=== PATIENT | female | born 1945 | race Caucasian/White ===

== ENCOUNTER → 2019-06-03 10:21 | Outpatient (CLI) | payer OTHER, SELFPAY ==
[2019-06-03 11:06] LABS: Hematocrit 38.7 % (36-46); Hemoglobin 13.2 g/dL (12.0-16.0); Mean Corpuscular HGB Conc 34.2 % (30-36); Mean Corpuscular Hemoglobin 33.6 PG (26-34); Mean Corpuscular Volume 98.2 fL (80-100); Platelet Count 148 X10^3/uL (150-400); Red Blood Cell Count 3.94 X10^6/uL (4.0-5.2); Red Cell Distribution Width 13.1 % (11.6-14.8)
[2019-06-03 11:15] LABS: Alanine Aminotransferase 24 IU/L (9-52); Albumin 4.3 g/dL (3.5-5.0); Albumin Globulin Ratio 1.6 (1.0-2.8); Alkaline Phosphatase 89 U/L (38-126); Aspartate Aminotransferase 48 IU/L (14-36); BUN Creatinine Ratio 18.6 (6-22); Bilirubin Total 0.6 mg/dL (0.2-1.3); Blood Urea Nitrogen 13 mg/dL (7-17); Calcium 9.8 mg/dL (8.4-10.2); Carbon Dioxide 28 mmol/L (22-32); Chloride 96 mmol/L (98-107); Estimated Glomerular Filt Rate > 60.0 mL/min (>60); Globulin 2.7 g/dL (1.7-4.1); Glucose 151 mg/dL (80-110); HEMOLYSIS < 15 (0-50); Sodium 135 mmol/L (137-145)
[2019-06-03 11:18] LABS: Add Manual Diff / Slide Review YES; White Blood Cell Count 1.9 X10^3/uL (4.5-11.0)
[2019-06-03 11:19] LABS: Potassium 5.5 mmol/L (3.4-5.1)
[2019-06-03 11:24] LABS: Neutrophils Absolute Manual 1026 /uL (3000-5900); Total Cells Counted 100
[2019-06-03 11:25] LABS: RBC Morphology Normal Morphology
== END ==
PROVIDERS: Visit Provider Internal Medicine Hematology & Oncology
DX: C78.00 Secondary malignant neoplasm of unspecified lung (principal); C79.51 Secondary malignant neoplasm of bone; C78.7 Secondary malignant neoplasm of liver and intrahepatic bile duct
CPT/HCPCS: 36415; 80053; 85025

== ENCOUNTER → 2019-06-16 11:16 | Outpatient (CLI) | payer OTHER, SELFPAY ==
[2019-06-16 12:16] LABS: Hemoglobin 12.2 g/dL (12.0-16.0); Mean Corpuscular Hemoglobin 33.6 PG (26-34); Mean Corpuscular Volume 98.8 fL (80-100); Platelet Count 163 X10^3/uL (150-400); Red Blood Cell Count 3.64 X10^6/uL (4.0-5.2); Red Cell Distribution Width 13.8 % (11.6-14.8)
[2019-06-16 12:36] LABS: Add Manual Diff / Slide Review YES; White Blood Cell Count 1.9 X10^3/uL (4.5-11.0)
[2019-06-16 12:45] LABS: Alanine Aminotransferase 35 IU/L (<35); Albumin 4.2 g/dL (3.5-5.0); Albumin Globulin Ratio 1.6 (1.0-2.8); Alkaline Phosphatase 89 U/L (38-126); Aspartate Aminotransferase 49 IU/L (14-36); Bilirubin Total 0.4 mg/dL (0.2-1.3); Blood Urea Nitrogen 21 mg/dL (7-17); Calcium 9.3 mg/dL (8.4-10.2); Carbon Dioxide 31 mmol/L (22-32); Chloride 96 mmol/L (98-107); Estimated Glomerular Filt Rate > 60.0 mL/min (>60); Globulin 2.7 g/dL (1.7-4.1); Glucose 96 mg/dL (80-110); HEMOLYSIS < 15 (0-50); Potassium 4.4 mmol/L (3.4-5.1); Sodium 136 mmol/L (137-145); Total Protein 6.9 g/dL (6.3-8.2)
[2019-06-16 13:05] LABS: Neutrophils Absolute Manual 760 /uL (3000-5900); Total Cells Counted 50
[2019-06-16 13:07] LABS: Poikilocytosis 1+
[2019-06-16 13:11] LABS: Carcinoembryonic Antigen 41.1 ng/mL (0.1-3.0)
[2019-06-18 18:21] LABS: CA 15-3 884 U/mL (< 32)
== END ==
PROVIDERS: Visit Provider Internal Medicine Hematology & Oncology
DX: C79.51 Secondary malignant neoplasm of bone (principal); C78.7 Secondary malignant neoplasm of liver and intrahepatic bile duct; C78.00 Secondary malignant neoplasm of unspecified lung
CPT/HCPCS: 36415; 80053; 82378; 85025; 86300

== ENCOUNTER 2019-06-22 03:20 | Emergency (ER) | payer OTHER, SELFPAY ==
[2019-06-22 03:34] VITALS: BP 130/77; PULSE 88; RESP 18; TEMP 36.3; O2SAT 100
[2019-06-22 03:45] VITALS: BP 130/77; PULSE 87; O2SAT 96
--- NOTE | 2019-06-22 03:45 | ED_ITS ---
HPI - Abdominal Pain General Chief Complaint: Abdominal Pain Stated Complaint: has impacted bowel Time Seen by Provider: 06/22/19 03:45 Source: patient Mode of arrival: Ambulatory Limitations: no limitations History of Present Illness HPI narrative: The patient has abdominal pressure with discomfort. She has no associated nausea vomiting. She has not had a bowel movement for 2 days. She feels like there is a firmness in her rectum. She is on chemotherapy for metastatic breast cancer. She is able to eat and drink, although her appetite is suppressed. She has no fever chills, or vomiting. She takes stool softeners, but constipation seems to be more problem now than usual. She has no associated urinary complaints. She has no other complaints. Related Data Home Medications Medication Instructions Recorded Confirmed [RX FOR BREAST CA] #0 10/25/12 [RX FOR GERD] #0 10/25/12 atenolol 25 mg PO QDAY #0 10/25/12 trazodone 50 mg PO QDAY #0 10/25/12 Previous Rx's Medication Instructions Recorded bisacodyl [Dulcolax (bisacodyl)] 5 mg PO BID PRN #20 tab 06/22/19 Review of Systems Review of Systems ROS Unobtainable: All systems reviewed & are unremarkable except as noted in HPI and below Constitutional Constitutional: Denies chills, Denies fatigue and Denies fever(s) Respiratory Respiratory: Denies chest congestion and Denies cough Gastrointestinal Gastrointestinal: Denies melena, Denies bloating, Denies hematochezia, Reports constipation and Reports cramping Genitourinary Genitourinary: Denies dysuria Musculoskeletal Musculoskeletal: Denies back pain Integumentary/Breasts Skin/Breast: Denies rash Endocrine Endocrine: Denies fatigue Patient History Social History Smoking Status: Never smoker Substance Use Type: does not use Exam Initial Vital Signs Initial Vital Signs: Vital Signs Temperature 97.3 F L 06/22/19 03:34 Pulse Rate 88 06/22/19 03:34 Respiratory Rate 18 06/22/19 03:34 Blood Pressure 130/77 06/22/19 03:34 Pulse Oximetry 100 06/22/19 03:34 Const General: cooperative and well developed Nutritional Appearance: well nourished Orientation: alert, awake, oriented x3 and not confused [facility] Head: normocephalic and atraumatic Mouth: moist mucous membranes GI Inspection: normal to inspection Palpation: soft, No guarding, No mass and tender (Mild LLQ ) Auscultation: normal bowel sounds Rectal Exam: fecal impaction (Mild) and hemorrhoids Skin General: no rashes or lesions noted, No jaundice and No petechiae Course Course Course Narrative: Digital disimpaction was done. A small-bowel moved was induced. The noon was given, resulting in additional bowel movement. She is still spilling some fullness. She will disease Orders Ordered: Discontinued Medications Bisacodyl (Dulcolax) 10 mg PO NOW ONE Stop: 06/22/19 05:13 Mineral Oil (Mineral Oil Enema) 1 each MS NOW ONE Stop: 06/22/19 04:58 Vital Signs Vital signs: Vital Signs - 8 hr 06/22/19 03:34 06/22/19 03:45 Temperature 97.3 F L Pulse Rate 88 87 Respiratory Rate 18 Blood Pressure 130/77 Blood Pressure [Right Arm] 130/77 Pulse Oximetry 100 96 Discharge Plan Departure Patient Disposition: Home Clinical Impression: Constipation Instructions: DI for Constipation Activity Restrictions/Additional Instructions: Increase the use of Colace to 2 times daily, continue to drink plenty of fluid daily. Use Dulcolax if you have problems with constipation despite the Colace. If you have ongoing problems, follow up with her doctor for further instructions. Return the ER if you have increased abdominal pain, vomiting, or fever. Prescriptions: New bisacodyl [Dulcolax (bisacodyl)] 5 mg tablet,delayed release (DR/EC) 5 mg PO BID PRN (Reason: constipation) Qty: 20 RF: 0 No Action trazodone 50 MG tablet 50 mg PO QDAY Qty: 0 RF: 0 atenolol 25 MG tablet 25 mg PO QDAY Qty: 0 RF: 0 [RX FOR GERD] Qty: 0 RF: 0 [RX FOR BREAST CA] Qty: 0 RF: 0
[2019-06-22] MEDS: MINERAL OIL 1 EACH ENEMA PR (05:19)
== END 2019-06-22 05:20 | disposition home or self-care (01) ==
PROVIDERS: Emergency Provider Emergency Medicine
DX: K59.00 Constipation, unspecified (principal)
CPT/HCPCS: 99282

== ENCOUNTER → 2019-06-24 08:13 | Outpatient (CLI) | payer OTHER, SELFPAY ==
[2019-06-24 08:55] LABS: Add Manual Diff / Slide Review NO; Basophils Absolute Auto 100 /uL (0-100); Basophils Percent Auto 1.4 % (0-2); Eosinophils Absolute Auto 100 /uL (0-450); Eosinophils Percent Auto 1.6 % (2-4); Hematocrit 37.1 % (36-46); Hemoglobin 12.6 g/dL (12.0-16.0); Lymphocytes Absolute Auto 1300 /uL (1100-4500); Lymphocytes Percent Auto 28.5 % (25-40); Mean Corpuscular Hemoglobin 33.5 PG (26-34); Mean Corpuscular Volume 98.7 fL (80-100); Monocytes Absolute Auto 600 /uL (0-900); Monocytes Percent Auto 11.9 % (3-14); Neutrophils Absolute Auto 2600 /uL (1500-7000); Neutrophils Percent Auto 56.6 % (50-75); Platelet Count 270 X10^3/uL (150-400); Red Blood Cell Count 3.76 X10^6/uL (4.0-5.2); White Blood Cell Count 4.7 X10^3/uL (4.5-11.0)
[2019-06-24 09:19] LABS: Alanine Aminotransferase 50 IU/L (<35); Albumin 3.8 g/dL (3.5-5.0); Albumin Globulin Ratio 1.5 (1.0-2.8); Alkaline Phosphatase 109 U/L (38-126); Aspartate Aminotransferase 58 IU/L (14-36); BUN Creatinine Ratio 16.7 (6-22); Bilirubin Total 0.5 mg/dL (0.2-1.3); Blood Urea Nitrogen 10 mg/dL (7-17); Calcium 9.5 mg/dL (8.4-10.2); Carbon Dioxide 31 mmol/L (22-32); Chloride 100 mmol/L (98-107); Estimated Glomerular Filt Rate > 60.0 mL/min (>60); Globulin 2.6 g/dL (1.7-4.1); Glucose 103 mg/dL (80-110); HEMOLYSIS < 15 (0-50); Potassium 4.7 mmol/L (3.4-5.1); Sodium 138 mmol/L (137-145); Total Protein 6.4 g/dL (6.3-8.2)
[2019-06-24 09:46] LABS: Carcinoembryonic Antigen 37.6 ng/mL (0.1-3.0)
== END ==
PROVIDERS: Visit Provider Internal Medicine Hematology & Oncology
DX: C78.00 Secondary malignant neoplasm of unspecified lung (principal); C79.51 Secondary malignant neoplasm of bone; C78.7 Secondary malignant neoplasm of liver and intrahepatic bile duct
CPT/HCPCS: 36415; 80053; 82378; 85025

== ENCOUNTER → 2019-07-08 11:38 | Outpatient (CLI) | payer OTHER, SELFPAY ==
[2019-07-08 12:10] LABS: Add Manual Diff / Slide Review NO; Basophils Absolute Auto 0 /uL (0-100); Basophils Percent Auto 1.5 % (0-2); Eosinophils Absolute Auto 0 /uL (0-450); Eosinophils Percent Auto 1.2 % (2-4); Hematocrit 36.4 % (36-46); Hemoglobin 12.6 g/dL (12.0-16.0); Lymphocytes Absolute Auto 800 /uL (1100-4500); Lymphocytes Percent Auto 27.9 % (25-40); Mean Corpuscular HGB Conc 34.7 % (30-36); Mean Corpuscular Hemoglobin 34.2 PG (26-34); Mean Corpuscular Volume 98.5 fL (80-100); Monocytes Absolute Auto 100 /uL (0-900); Neutrophils Absolute Auto 1800 /uL (1500-7000); Neutrophils Percent Auto 65.4 % (50-75); Platelet Count 180 X10^3/uL (150-400); Red Blood Cell Count 3.69 X10^6/uL (4.0-5.2); Red Cell Distribution Width 15.2 % (11.6-14.8); White Blood Cell Count 2.7 X10^3/uL (4.5-11.0)
== END ==
PROVIDERS: Visit Provider Internal Medicine Hematology & Oncology
DX: C78.00 Secondary malignant neoplasm of unspecified lung (principal); C79.51 Secondary malignant neoplasm of bone; C78.7 Secondary malignant neoplasm of liver and intrahepatic bile duct
CPT/HCPCS: 36415; 85025

== ENCOUNTER → 2019-09-15 09:33 | Outpatient (CLI) | payer OTHER, SELFPAY ==
[2019-09-15 10:16] LABS: Add Manual Diff / Slide Review NO; Basophils Absolute Auto 0 /uL (0-100); Basophils Percent Auto 1.1 % (0-2); Eosinophils Absolute Auto 0 /uL (0-450); Eosinophils Percent Auto 1.8 % (2-4); Hematocrit 38.5 % (36-46); Hemoglobin 13.5 g/dL (12.0-16.0); Lymphocytes Absolute Auto 800 /uL (1100-4500); Lymphocytes Percent Auto 28.3 % (25-40); Mean Corpuscular Volume 102.9 fL (80-100); Monocytes Absolute Auto 300 /uL (0-900); Monocytes Percent Auto 10.4 % (3-14); Neutrophils Absolute Auto 1600 /uL (1500-7000); Neutrophils Percent Auto 58.4 % (50-75); Platelet Count 113 X10^3/uL (150-400); Red Blood Cell Count 3.74 X10^6/uL (4.0-5.2); Red Cell Distribution Width 15.5 % (11.6-14.8); White Blood Cell Count 2.8 X10^3/uL (4.5-11.0)
[2019-09-15 10:43] LABS: Alanine Aminotransferase 34 IU/L (<35); Albumin Globulin Ratio 1.4 (1.0-2.8); Alkaline Phosphatase 102 U/L (38-126); Aspartate Aminotransferase 47 IU/L (14-36); BUN Creatinine Ratio 27.1 (6-22); Bilirubin Total 0.5 mg/dL (0.2-1.3); Blood Urea Nitrogen 19 mg/dL (7-17); Calcium 9.6 mg/dL (8.4-10.2); Carbon Dioxide 30 mmol/L (22-32); Chloride 99 mmol/L (98-107); Estimated Glomerular Filt Rate > 60.0 mL/min (>60); Globulin 2.9 g/dL (1.7-4.1); Glucose 138 mg/dL (80-110); HEMOLYSIS < 15 (0-50); Sodium 138 mmol/L (137-145); Total Protein 6.9 g/dL (6.3-8.2)
[2019-09-15 11:13] LABS: Carcinoembryonic Antigen 26.8 ng/mL (0.1-3.0)
[2019-09-17 16:13] LABS: CA 15-3 884 U/mL (< 32)
== END ==
PROVIDERS: Referring Provider Internal Medicine Hematology & Oncology; Visit Provider Internal Medicine Hematology & Oncology
DX: C78.00 Secondary malignant neoplasm of unspecified lung (principal); C79.51 Secondary malignant neoplasm of bone; C78.7 Secondary malignant neoplasm of liver and intrahepatic bile duct
CPT/HCPCS: 36415; 80053; 82378; 85025; 86300

== ENCOUNTER → 2019-10-24 10:46 | Outpatient (CLI) | payer OTHER, SELFPAY ==
[2019-10-24 12:42] LABS: Add Manual Diff / Slide Review NO; Basophils Absolute Auto 100 /uL (0-100); Basophils Percent Auto 2.8 % (0-2); Eosinophils Absolute Auto 100 /uL (0-450); Eosinophils Percent Auto 2.1 % (2-4); Hematocrit 40.5 % (36-46); Lymphocytes Absolute Auto 900 /uL (1100-4500); Lymphocytes Percent Auto 29.2 % (25-40); Mean Corpuscular HGB Conc 34.5 % (30-36); Mean Corpuscular Hemoglobin 36.1 PG (26-34); Mean Corpuscular Volume 104.5 fL (80-100); Monocytes Absolute Auto 300 /uL (0-900); Monocytes Percent Auto 9.7 % (3-14); Neutrophils Absolute Auto 1700 /uL (1500-7000); Neutrophils Percent Auto 56.2 % (50-75); Platelet Count 173 X10^3/uL (150-400); Red Blood Cell Count 3.88 X10^6/uL (4.0-5.2); Red Cell Distribution Width 13.8 % (11.6-14.8)
== END ==
PROVIDERS: Referring Provider Internal Medicine Hematology & Oncology; Visit Provider Internal Medicine Hematology & Oncology
DX: C78.00 Secondary malignant neoplasm of unspecified lung (principal); C79.51 Secondary malignant neoplasm of bone; C78.7 Secondary malignant neoplasm of liver and intrahepatic bile duct
CPT/HCPCS: 36415; 85025

== ENCOUNTER → 2019-12-26 12:27 | Outpatient (CLI) | payer OTHER, SELFPAY ==
[2019-12-26 13:29] LABS: Add Manual Diff / Slide Review NO; Basophils Absolute Auto 0 /uL (0-100); Basophils Percent Auto 0.6 % (0-2); Eosinophils Absolute Auto 0 /uL (0-450); Hematocrit 37.7 % (36-46); Lymphocytes Absolute Auto 700 /uL (1100-4500); Lymphocytes Percent Auto 36.2 % (25-40); Mean Corpuscular HGB Conc 34.6 % (30-36); Mean Corpuscular Hemoglobin 35.8 PG (26-34); Mean Corpuscular Volume 103.4 fL (80-100); Monocytes Absolute Auto 200 /uL (0-900); Monocytes Percent Auto 8.8 % (3-14); Neutrophils Absolute Auto 1100 /uL (1500-7000); Neutrophils Percent Auto 53.4 % (50-75); Platelet Count 101 X10^3/uL (150-400); Red Blood Cell Count 3.64 X10^6/uL (4.0-5.2); Red Cell Distribution Width 13.3 % (11.6-14.8)
[2019-12-26 14:35] LABS: Alanine Aminotransferase 28 IU/L (<35); Albumin 3.8 g/dL (3.5-5.0); Albumin Globulin Ratio 1.3 (1.0-2.8); Alkaline Phosphatase 106 U/L (38-126); Aspartate Aminotransferase 44 IU/L (14-36); BUN Creatinine Ratio 22.2 (6-22); Bilirubin Total 0.3 mg/dL (0.2-1.3); Blood Urea Nitrogen 16 mg/dL (7-17); Calcium 9.3 mg/dL (8.4-10.2); Carbon Dioxide 28 mmol/L (22-32); Chloride 101 mmol/L (98-107); Estimated Glomerular Filt Rate > 60.0 mL/min (>60); Glucose 164 mg/dL (80-110); HEMOLYSIS < 15 (0-50); Potassium 4.7 mmol/L (3.4-5.1); Sodium 137 mmol/L (137-145); Total Protein 6.8 g/dL (6.3-8.2)
[2019-12-26 15:03] LABS: Carcinoembryonic Antigen 39.7 ng/mL (0.1-3.0)
== END ==
PROVIDERS: Referring Provider Internal Medicine Hematology & Oncology; Visit Provider Internal Medicine Hematology & Oncology
DX: C78.00 Secondary malignant neoplasm of unspecified lung (principal); C79.51 Secondary malignant neoplasm of bone; C78.7 Secondary malignant neoplasm of liver and intrahepatic bile duct
CPT/HCPCS: 36415; 80053; 82378; 85025; 86300

== ENCOUNTER → 2020-01-24 10:55 | Outpatient (CLI) | payer OTHER, SELFPAY ==
[2020-01-24 12:15] LABS: Add Manual Diff / Slide Review NO; Basophils Absolute Auto 0 /uL (0-100); Basophils Percent Auto 0.5 % (0-2); Eosinophils Absolute Auto 0 /uL (0-450); Eosinophils Percent Auto 0.4 % (2-4); Hematocrit 38.3 % (36-46); Hemoglobin 13.5 g/dL (12.0-16.0); Lymphocytes Absolute Auto 500 /uL (1100-4500); Lymphocytes Percent Auto 15.8 % (25-40); Mean Corpuscular HGB Conc 35.3 % (30-36); Mean Corpuscular Hemoglobin 36.9 PG (26-34); Mean Corpuscular Volume 104.6 fL (80-100); Monocytes Absolute Auto 300 /uL (0-900); Monocytes Percent Auto 8.2 % (3-14); Neutrophils Absolute Auto 2300 /uL (1500-7000); Neutrophils Percent Auto 75.1 % (50-75); Platelet Count 108 X10^3/uL (150-400); Red Blood Cell Count 3.67 X10^6/uL (4.0-5.2); Red Cell Distribution Width 14.8 % (11.6-14.8); White Blood Cell Count 3.1 X10^3/uL (4.5-11.0)
[2020-01-24 12:41] LABS: Alanine Aminotransferase 36 IU/L (<35); Albumin 3.8 g/dL (3.5-5.0); Albumin Globulin Ratio 1.4 (1.0-2.8); Alkaline Phosphatase 109 U/L (38-126); Aspartate Aminotransferase 49 IU/L (14-36); BUN Creatinine Ratio 19.7 (6-22); Bilirubin Total 0.5 mg/dL (0.2-1.3); Blood Urea Nitrogen 14 mg/dL (7-17); Calcium 9.4 mg/dL (8.4-10.2); Carbon Dioxide 29 mmol/L (22-32); Chloride 101 mmol/L (98-107); Estimated Glomerular Filt Rate > 60.0 mL/min (>60); Globulin 2.8 g/dL (1.7-4.1); Glucose 227 mg/dL (80-110); HEMOLYSIS < 15 (0-50); Sodium 136 mmol/L (137-145); Total Protein 6.6 g/dL (6.3-8.2)
[2020-01-24 13:12] LABS: Carcinoembryonic Antigen 47.8 ng/mL (0.1-3.0)
== END ==
PROVIDERS: Referring Provider Internal Medicine Hematology & Oncology; Visit Provider Internal Medicine Hematology & Oncology
DX: C78.00 Secondary malignant neoplasm of unspecified lung (principal); C78.7 Secondary malignant neoplasm of liver and intrahepatic bile duct; C79.51 Secondary malignant neoplasm of bone
CPT/HCPCS: 36415; 80053; 82378; 85025; 86300

== ENCOUNTER → 2020-03-20 10:55 | Outpatient (CLI) | payer OTHER, SELFPAY ==
[2020-03-20 13:23] LABS: Add Manual Diff / Slide Review NO; Basophils Absolute Auto 0 /uL (0-100); Basophils Percent Auto 2.5 % (0-2); Eosinophils Absolute Auto 0 /uL (0-450); Eosinophils Percent Auto 1.2 % (2-4); Hematocrit 39.1 % (36-46); Hemoglobin 13.5 g/dL (12.0-16.0); Lymphocytes Absolute Auto 700 /uL (1100-4500); Lymphocytes Percent Auto 37.8 % (25-40); Mean Corpuscular HGB Conc 34.4 % (30-36); Mean Corpuscular Hemoglobin 36.9 PG (26-34); Mean Corpuscular Volume 107.1 fL (80-100); Monocytes Absolute Auto 200 /uL (0-900); Monocytes Percent Auto 12.1 % (3-14); Neutrophils Absolute Auto 900 /uL (1500-7000); Neutrophils Percent Auto 46.4 % (50-75); Platelet Count 105 X10^3/uL (150-400); Red Blood Cell Count 3.65 X10^6/uL (4.0-5.2); Red Cell Distribution Width 14.5 % (11.6-14.8)
[2020-03-20 13:44] LABS: Alanine Aminotransferase 31 IU/L (<35); Albumin 3.8 g/dL (3.5-5.0); Albumin Globulin Ratio 1.3 (1.0-2.8); Alkaline Phosphatase 99 U/L (38-126); Aspartate Aminotransferase 52 IU/L (14-36); BUN Creatinine Ratio 25.8 (6-22); Bilirubin Total 0.5 mg/dL (0.2-1.3); Blood Urea Nitrogen 16 mg/dL (7-17); Calcium 9.5 mg/dL (8.4-10.2); Carbon Dioxide 29 mmol/L (22-32); Chloride 100 mmol/L (98-107); Estimated Glomerular Filt Rate > 60.0 mL/min (>60); Globulin 2.9 g/dL (1.7-4.1); Potassium 4.6 mmol/L (3.4-5.1); Sodium 135 mmol/L (137-145); Total Protein 6.7 g/dL (6.3-8.2)
[2020-03-20 13:59] LABS: Glucose 185 mg/dL (80-110); HEMOLYSIS 37 (0-50)
[2020-03-20 14:11] LABS: Carcinoembryonic Antigen 68.9 ng/mL (0.1-3.0)
== END ==
PROVIDERS: Referring Provider Internal Medicine Hematology & Oncology; Visit Provider Internal Medicine Hematology & Oncology
DX: C78.00 Secondary malignant neoplasm of unspecified lung (principal); C79.51 Secondary malignant neoplasm of bone; C78.7 Secondary malignant neoplasm of liver and intrahepatic bile duct
CPT/HCPCS: 36415; 80053; 82378; 85025; 86300

== ENCOUNTER → 2020-03-27 10:32 | Outpatient (CLI) | payer OTHER, SELFPAY ==
[2020-03-27 11:22] LABS: Add Manual Diff / Slide Review NO; Basophils Absolute Auto 100 /uL (0-100); Basophils Percent Auto 2.7 % (0-2); Eosinophils Absolute Auto 0 /uL (0-450); Eosinophils Percent Auto 1.6 % (2-4); Hematocrit 41.6 % (36-46); Hemoglobin 14.1 g/dL (12.0-16.0); Lymphocytes Absolute Auto 800 /uL (1100-4500); Lymphocytes Percent Auto 28.9 % (25-40); Mean Corpuscular HGB Conc 33.9 % (30-36); Mean Corpuscular Hemoglobin 36.5 PG (26-34); Mean Corpuscular Volume 107.7 fL (80-100); Monocytes Absolute Auto 300 /uL (0-900); Monocytes Percent Auto 9.9 % (3-14); Neutrophils Absolute Auto 1600 /uL (1500-7000); Neutrophils Percent Auto 56.9 % (50-75); Platelet Count 173 X10^3/uL (150-400); Red Blood Cell Count 3.86 X10^6/uL (4.0-5.2); Red Cell Distribution Width 14.6 % (11.6-14.8); White Blood Cell Count 2.9 X10^3/uL (4.5-11.0)
[2020-03-27 12:12] LABS: Alanine Aminotransferase 50 IU/L (<35); Albumin 4.1 g/dL (3.5-5.0); Albumin Globulin Ratio 1.3 (1.0-2.8); Alkaline Phosphatase 130 U/L (38-126); Aspartate Aminotransferase 62 IU/L (14-36); BUN Creatinine Ratio 17.5 (6-22); Bilirubin Total 0.4 mg/dL (0.2-1.3); Blood Urea Nitrogen 14 mg/dL (7-17); Calcium 9.4 mg/dL (8.4-10.2); Carbon Dioxide 30 mmol/L (22-32); Chloride 99 mmol/L (98-107); Estimated Glomerular Filt Rate > 60.0 mL/min (>60); Globulin 3.1 g/dL (1.7-4.1); Glucose 194 mg/dL (80-110); HEMOLYSIS < 15 (0-50); Potassium 4.2 mmol/L (3.4-5.1); Sodium 135 mmol/L (137-145); Total Protein 7.2 g/dL (6.3-8.2)
[2020-03-27 12:41] LABS: Carcinoembryonic Antigen 73.3 ng/mL (0.1-3.0)
== END ==
PROVIDERS: Referring Provider Internal Medicine Hematology & Oncology; Visit Provider Internal Medicine Hematology & Oncology
DX: C78.00 Secondary malignant neoplasm of unspecified lung (principal); C79.51 Secondary malignant neoplasm of bone; C78.7 Secondary malignant neoplasm of liver and intrahepatic bile duct
CPT/HCPCS: 36415; 80053; 82378; 85025; 86300

== ENCOUNTER → 2020-04-24 12:42 | Outpatient (CLI) | payer OTHER, SELFPAY ==
[2020-04-24 13:29] LABS: Add Manual Diff / Slide Review NO; Basophils Absolute Auto 0 /uL (0-100); Basophils Percent Auto 1.9 % (0-2); Eosinophils Absolute Auto 0 /uL (0-450); Eosinophils Percent Auto 2.1 % (2-4); Hematocrit 38.3 % (36-46); Hemoglobin 13.3 g/dL (12.0-16.0); Lymphocytes Absolute Auto 700 /uL (1100-4500); Lymphocytes Percent Auto 38.8 % (25-40); Mean Corpuscular HGB Conc 34.7 % (30-36); Mean Corpuscular Hemoglobin 36.7 PG (26-34); Mean Corpuscular Volume 105.6 fL (80-100); Monocytes Absolute Auto 200 /uL (0-900); Monocytes Percent Auto 10.1 % (3-14); Neutrophils Absolute Auto 900 /uL (1500-7000); Neutrophils Percent Auto 47.1 % (50-75); Platelet Count 103 X10^3/uL (150-400); Red Blood Cell Count 3.63 X10^6/uL (4.0-5.2); Red Cell Distribution Width 13.5 % (11.6-14.8)
[2020-04-24 13:47] LABS: White Blood Cell Count 1.9 X10^3/uL (4.5-11.0)
[2020-04-24 13:55] LABS: Alanine Aminotransferase 37 IU/L (<35); Albumin 3.6 g/dL (3.5-5.0); Albumin Globulin Ratio 1.4 (1.0-2.8); Alkaline Phosphatase 141 U/L (38-126); Aspartate Aminotransferase 52 IU/L (14-36); BUN Creatinine Ratio 17.6 (6-22); Bilirubin Total 0.4 mg/dL (0.2-1.3); Blood Urea Nitrogen 13 mg/dL (7-17); Calcium 8.9 mg/dL (8.4-10.2); Carbon Dioxide 30 mmol/L (22-32); Chloride 103 mmol/L (98-107); Estimated Glomerular Filt Rate > 60.0 mL/min (>60); Globulin 2.6 g/dL (1.7-4.1); Glucose 134 mg/dL (80-110); HEMOLYSIS < 15 (0-50); Potassium 4.3 mmol/L (3.4-5.1); Sodium 137 mmol/L (137-145); Total Protein 6.2 g/dL (6.3-8.2)
[2020-04-24 14:23] LABS: Carcinoembryonic Antigen 92.9 ng/mL (0.1-3.0)
== END ==
PROVIDERS: Referring Provider Internal Medicine Hematology & Oncology; Visit Provider Internal Medicine Hematology & Oncology
DX: C79.51 Secondary malignant neoplasm of bone (principal); C78.7 Secondary malignant neoplasm of liver and intrahepatic bile duct; C78.00 Secondary malignant neoplasm of unspecified lung
CPT/HCPCS: 36415; 80053; 82378; 85025; 86300

== ENCOUNTER → 2020-05-29 12:51 | Outpatient (CLI) | payer OTHER, SELFPAY ==
[2020-05-29 14:21] LABS: Add Manual Diff / Slide Review NO; Basophils Absolute Auto 100 /uL (0-100); Basophils Percent Auto 2.8 % (0-2); Eosinophils Absolute Auto 0 /uL (0-450); Eosinophils Percent Auto 1.4 % (2-4); Hematocrit 36.7 % (36-46); Hemoglobin 12.8 g/dL (12.0-16.0); Lymphocytes Absolute Auto 700 /uL (1100-4500); Lymphocytes Percent Auto 34.2 % (25-40); Mean Corpuscular HGB Conc 34.8 % (30-36); Mean Corpuscular Hemoglobin 36.7 PG (26-34); Mean Corpuscular Volume 105.5 fL (80-100); Monocytes Absolute Auto 300 /uL (0-900); Monocytes Percent Auto 14.5 % (3-14); Neutrophils Absolute Auto 1000 /uL (1500-7000); Neutrophils Percent Auto 47.1 % (50-75); Platelet Count 130 X10^3/uL (150-400); Red Blood Cell Count 3.48 X10^6/uL (4.0-5.2); Red Cell Distribution Width 14.9 % (11.6-14.8); White Blood Cell Count 2.1 X10^3/uL (4.5-11.0)
[2020-05-29 15:34] LABS: Alanine Aminotransferase 49 IU/L (<35); Albumin 3.9 g/dL (3.5-5.0); Albumin Globulin Ratio 1.3 (1.0-2.8); Alkaline Phosphatase 192 U/L (38-126); Aspartate Aminotransferase 61 IU/L (14-36); BUN Creatinine Ratio 23.4 (6-22); Bilirubin Total 0.3 mg/dL (0.2-1.3); Blood Urea Nitrogen 15 mg/dL (7-17); Calcium 9.3 mg/dL (8.4-10.2); Carbon Dioxide 35 mmol/L (22-32); Chloride 101 mmol/L (98-107); Estimated Glomerular Filt Rate > 60.0 mL/min (>60); Glucose 98 mg/dL (80-110); HEMOLYSIS < 15 (0-50); Potassium 4.3 mmol/L (3.4-5.1); Sodium 136 mmol/L (137-145); Total Protein 6.9 g/dL (6.3-8.2)
== END ==
PROVIDERS: Referring Provider Internal Medicine Hematology & Oncology; Visit Provider Internal Medicine Hematology & Oncology
DX: C78.00 Secondary malignant neoplasm of unspecified lung (principal); C79.51 Secondary malignant neoplasm of bone; C78.7 Secondary malignant neoplasm of liver and intrahepatic bile duct; Z85.3 Personal history of malignant neoplasm of breast
CPT/HCPCS: 36415; 80053; 82378; 85025; 86300

== ENCOUNTER → 2020-07-03 12:20 | Outpatient (CLI) | payer OTHER, SELFPAY ==
[2020-07-03 13:38] LABS: Add Manual Diff / Slide Review NO; Basophils Absolute Auto 100 /uL (0-100); Basophils Percent Auto 2.8 % (0-2); Eosinophils Absolute Auto 100 /uL (0-450); Eosinophils Percent Auto 2.3 % (2-4); Hematocrit 39.8 % (36-46); Hemoglobin 13.5 g/dL (12.0-16.0); Lymphocytes Absolute Auto 700 /uL (1100-4500); Lymphocytes Percent Auto 32.4 % (25-40); Mean Corpuscular HGB Conc 33.9 % (30-36); Mean Corpuscular Hemoglobin 35.8 PG (26-34); Mean Corpuscular Volume 105.7 fL (80-100); Monocytes Absolute Auto 200 /uL (0-900); Monocytes Percent Auto 10.2 % (3-14); Neutrophils Absolute Auto 1200 /uL (1500-7000); Neutrophils Percent Auto 52.3 % (50-75); Platelet Count 136 X10^3/uL (150-400); Red Blood Cell Count 3.77 X10^6/uL (4.0-5.2); Red Cell Distribution Width 15.1 % (11.6-14.8); White Blood Cell Count 2.3 X10^3/uL (4.5-11.0)
[2020-07-03 13:46] LABS: Alanine Aminotransferase 42 IU/L (<35); Albumin 3.9 g/dL (3.5-5.0); Albumin Globulin Ratio 1.2 (1.0-2.8); Alkaline Phosphatase 193 U/L (38-126); Aspartate Aminotransferase 63 IU/L (14-36); BUN Creatinine Ratio 19.4 (6-22); Bilirubin Total 0.4 mg/dL (0.2-1.3); Blood Urea Nitrogen 13 mg/dL (7-17); Carbon Dioxide 31 mmol/L (22-32); Chloride 102 mmol/L (98-107); Estimated Glomerular Filt Rate > 60.0 mL/min (>60); Globulin 3.2 g/dL (1.7-4.1); Glucose 144 mg/dL (80-110); HEMOLYSIS 21 (0-50); Potassium 4.1 mmol/L (3.4-5.1); Sodium 136 mmol/L (137-145); Total Protein 7.1 g/dL (6.3-8.2)
== END ==
PROVIDERS: Referring Provider Internal Medicine Hematology & Oncology; Visit Provider Internal Medicine Hematology & Oncology
DX: C78.00 Secondary malignant neoplasm of unspecified lung (principal); C79.51 Secondary malignant neoplasm of bone; C78.7 Secondary malignant neoplasm of liver and intrahepatic bile duct
CPT/HCPCS: 36415; 80053; 82378; 85025; 86300

== ENCOUNTER → 2020-08-01 11:09 | Outpatient (CLI) | payer OTHER, SELFPAY ==
[2020-08-01 13:27] LABS: Hematocrit 40.3 % (36-46); Hemoglobin 13.7 g/dL (12.0-16.0); Mean Corpuscular HGB Conc 33.9 % (30-36); Mean Corpuscular Hemoglobin 35.9 PG (26-34); Mean Corpuscular Volume 105.9 fL (80-100); Platelet Count 114 X10^3/uL (150-400); Red Blood Cell Count 3.81 X10^6/uL (4.0-5.2); Red Cell Distribution Width 15.9 % (11.6-14.8)
[2020-08-01 13:41] LABS: Alanine Aminotransferase 49 IU/L (<35); Albumin 3.7 g/dL (3.5-5.0); Albumin Globulin Ratio 1.3 (1.0-2.8); Alkaline Phosphatase 243 U/L (38-126); Aspartate Aminotransferase 74 IU/L (14-36); BUN Creatinine Ratio 27.9 (6-22); Bilirubin Total 0.3 mg/dL (0.2-1.3); Blood Urea Nitrogen 19 mg/dL (7-17); Carbon Dioxide 32 mmol/L (22-32); Chloride 101 mmol/L (98-107); Estimated Glomerular Filt Rate > 60.0 mL/min (>60); Globulin 2.8 g/dL (1.7-4.1); Glucose 187 mg/dL (80-110); HEMOLYSIS < 15 (0-50); Potassium 4.4 mmol/L (3.4-5.1); Sodium 137 mmol/L (137-145); Total Protein 6.5 g/dL (6.3-8.2)
[2020-08-01 13:49] LABS: Add Manual Diff / Slide Review YES; White Blood Cell Count 1.8 X10^3/uL (4.5-11.0)
[2020-08-01 13:52] LABS: Neutrophils Absolute Manual 1008 /uL (3000-5900); RBC Morphology Normal Morphology; Total Cells Counted 50
== END ==
PROVIDERS: Referring Provider Internal Medicine Hematology & Oncology; Visit Provider Internal Medicine Hematology & Oncology
DX: C78.7 Secondary malignant neoplasm of liver and intrahepatic bile duct (principal); C78.00 Secondary malignant neoplasm of unspecified lung; Z85.3 Personal history of malignant neoplasm of breast; C79.51 Secondary malignant neoplasm of bone
CPT/HCPCS: 36415; 80053; 82378; 85007; 85025; 86300

== ENCOUNTER → 2020-08-30 13:02 | Outpatient (CLI) | payer OTHER, SELFPAY ==
[2020-08-30 13:44] LABS: Hematocrit 37.4 % (36-46); Hemoglobin 12.8 g/dL (12.0-16.0); Mean Corpuscular HGB Conc 34.3 % (30-36); Mean Corpuscular Hemoglobin 36.8 PG (26-34); Mean Corpuscular Volume 107.1 fL (80-100); Platelet Count 101 X10^3/uL (150-400); Red Blood Cell Count 3.49 X10^6/uL (4.0-5.2); Red Cell Distribution Width 15.5 % (11.6-14.8)
[2020-08-30 13:56] LABS: Alanine Aminotransferase 46 IU/L (<35); Albumin 3.7 g/dL (3.5-5.0); Albumin Globulin Ratio 1.3 (1.0-2.8); Alkaline Phosphatase 186 U/L (38-126); Aspartate Aminotransferase 70 IU/L (14-36); BUN Creatinine Ratio 32.3 (6-22); Bilirubin Total 0.3 mg/dL (0.2-1.3); Blood Urea Nitrogen 20 mg/dL (7-17); Calcium 9.2 mg/dL (8.4-10.2); Carbon Dioxide 31 mmol/L (22-32); Chloride 104 mmol/L (98-107); Estimated Glomerular Filt Rate > 60.0 mL/min (>60); Globulin 2.9 g/dL (1.7-4.1); Glucose 116 mg/dL (80-110); HEMOLYSIS < 15 (0-50); Potassium 4.4 mmol/L (3.4-5.1); Sodium 136 mmol/L (137-145); Total Protein 6.6 g/dL (6.3-8.2)
[2020-08-30 14:27] LABS: Add Manual Diff / Slide Review YES; White Blood Cell Count 1.7 X10^3/uL (4.5-11.0)
[2020-08-30 14:30] LABS: Neutrophils Absolute Manual 816 /uL (3000-5900); Total Cells Counted 50
[2020-08-30 14:31] LABS: RBC Morphology See
[2020-08-30 14:32] LABS: Anisocytosis 1+; Macrocytosis 1+
== END ==
PROVIDERS: Referring Provider Internal Medicine Hematology & Oncology; Visit Provider Internal Medicine Hematology & Oncology
DX: C79.51 Secondary malignant neoplasm of bone (principal); C78.00 Secondary malignant neoplasm of unspecified lung; C50.919 Malignant neoplasm of unspecified site of unspecified female breast; C78.7 Secondary malignant neoplasm of liver and intrahepatic bile duct
CPT/HCPCS: 36415; 80053; 82378; 85007; 85025; 86300

== ENCOUNTER → 2020-09-06 11:30 | Outpatient (CLI) | payer OTHER, SELFPAY ==
[2020-09-06 13:31] LABS: Add Manual Diff / Slide Review NO; Basophils Absolute Auto 100 /uL (0-100); Basophils Percent Auto 3.3 % (0-2); Eosinophils Absolute Auto 0 /uL (0-450); Eosinophils Percent Auto 1.8 % (2-4); Hematocrit 39.4 % (36-46); Hemoglobin 13.1 g/dL (12.0-16.0); Lymphocytes Absolute Auto 1000 /uL (1100-4500); Lymphocytes Percent Auto 37.8 % (25-40); Mean Corpuscular HGB Conc 33.2 % (30-36); Mean Corpuscular Volume 108.5 fL (80-100); Monocytes Absolute Auto 500 /uL (0-900); Monocytes Percent Auto 17.5 % (3-14); Neutrophils Absolute Auto 1100 /uL (1500-7000); Neutrophils Percent Auto 39.6 % (50-75); Platelet Count 179 X10^3/uL (150-400); Red Blood Cell Count 3.63 X10^6/uL (4.0-5.2); Red Cell Distribution Width 15.8 % (11.6-14.8); White Blood Cell Count 2.7 X10^3/uL (4.5-11.0)
== END ==
PROVIDERS: Referring Provider Internal Medicine Hematology & Oncology; Visit Provider Internal Medicine Hematology & Oncology
DX: C79.51 Secondary malignant neoplasm of bone (principal); Z85.3 Personal history of malignant neoplasm of breast; C78.7 Secondary malignant neoplasm of liver and intrahepatic bile duct; C78.00 Secondary malignant neoplasm of unspecified lung
CPT/HCPCS: 36415; 85025

== ENCOUNTER → 2020-10-04 08:05 | Outpatient (CLI) | payer OTHER, SELFPAY ==
[2020-10-04 09:16] LABS: Add Manual Diff / Slide Review NO; Basophils Absolute Auto 100 /uL (0-100); Basophils Percent Auto 2.6 % (0-2); Eosinophils Absolute Auto 0 /uL (0-450); Eosinophils Percent Auto 1.7 % (2-4); Hematocrit 39.9 % (36-46); Hemoglobin 13.5 g/dL (12.0-16.0); Lymphocytes Absolute Auto 800 /uL (1100-4500); Lymphocytes Percent Auto 33.6 % (25-40); Mean Corpuscular HGB Conc 33.9 % (30-36); Mean Corpuscular Hemoglobin 36.6 PG (26-34); Monocytes Absolute Auto 300 /uL (0-900); Monocytes Percent Auto 13.9 % (3-14); Neutrophils Absolute Auto 1200 /uL (1500-7000); Neutrophils Percent Auto 48.2 % (50-75); Platelet Count 121 X10^3/uL (150-400); Red Cell Distribution Width 14.7 % (11.6-14.8); White Blood Cell Count 2.5 X10^3/uL (4.5-11.0)
[2020-10-04 09:29] LABS: Alanine Aminotransferase 57 IU/L (<35); Albumin 3.7 g/dL (3.5-5.0); Albumin Globulin Ratio 1.2 (1.0-2.8); Alkaline Phosphatase 282 U/L (38-126); Aspartate Aminotransferase 87 IU/L (14-36); BUN Creatinine Ratio 19.4 (6-22); Bilirubin Total 0.3 mg/dL (0.2-1.3); Blood Urea Nitrogen 14 mg/dL (7-17); Calcium 9.4 mg/dL (8.4-10.2); Carbon Dioxide 30 mmol/L (22-32); Chloride 103 mmol/L (98-107); Estimated Glomerular Filt Rate > 60.0 mL/min (>60); Globulin 3.1 g/dL (1.7-4.1); Glucose 162 mg/dL (80-110); HEMOLYSIS 21 (0-50); Potassium 4.1 mmol/L (3.4-5.1); Sodium 136 mmol/L (137-145); Total Protein 6.8 g/dL (6.3-8.2)
== END ==
PROVIDERS: PCP Internal Medicine Hematology & Oncology; Referring Provider Internal Medicine Hematology & Oncology; Visit Provider Internal Medicine Hematology & Oncology
DX: C79.51 Secondary malignant neoplasm of bone (principal); C78.00 Secondary malignant neoplasm of unspecified lung; C78.7 Secondary malignant neoplasm of liver and intrahepatic bile duct
CPT/HCPCS: 36415; 80053; 82378; 85025; 86300

== ENCOUNTER → 2020-11-01 11:54 | Outpatient (CLI) | payer OTHER, SELFPAY ==
[2020-11-01 12:15] LABS: Add Manual Diff / Slide Review NO; Basophils Absolute Auto 100 /uL (0-100); Basophils Percent Auto 3.4 % (0-2); Eosinophils Absolute Auto 0 /uL (0-450); Eosinophils Percent Auto 2.3 % (2-4); Hematocrit 39.4 % (36-46); Hemoglobin 13.4 g/dL (12.0-16.0); Lymphocytes Absolute Auto 800 /uL (1100-4500); Lymphocytes Percent Auto 41.4 % (25-40); Mean Corpuscular Volume 108.7 fL (80-100); Monocytes Absolute Auto 300 /uL (0-900); Monocytes Percent Auto 16.4 % (3-14); Neutrophils Absolute Auto 700 /uL (1500-7000); Neutrophils Percent Auto 36.5 % (50-75); Platelet Count 106 X10^3/uL (150-400); Red Blood Cell Count 3.62 X10^6/uL (4.0-5.2); Red Cell Distribution Width 14.6 % (11.6-14.8)
[2020-11-01 12:43] LABS: Alanine Aminotransferase 46 IU/L (<35); Albumin 3.7 g/dL (3.5-5.0); Albumin Globulin Ratio 1.3 (1.0-2.8); Alkaline Phosphatase 280 U/L (38-126); Aspartate Aminotransferase 78 IU/L (14-36); BUN Creatinine Ratio 23.5 (6-22); Bilirubin Total 0.3 mg/dL (0.2-1.3); Blood Urea Nitrogen 16 mg/dL (7-17); Calcium 9.5 mg/dL (8.4-10.2); Carbon Dioxide 31 mmol/L (22-32); Chloride 101 mmol/L (98-107); Estimated Glomerular Filt Rate > 60.0 mL/min (>60); Globulin 2.8 g/dL (1.7-4.1); Glucose 91 mg/dL (80-110); HEMOLYSIS < 15 (0-50); Potassium 4.8 mmol/L (3.4-5.1); Sodium 138 mmol/L (137-145); Total Protein 6.5 g/dL (6.3-8.2)
== END ==
PROVIDERS: PCP Internal Medicine Hematology & Oncology; Referring Provider Internal Medicine Hematology & Oncology; Visit Provider Internal Medicine Hematology & Oncology
DX: C79.51 Secondary malignant neoplasm of bone (principal); C78.00 Secondary malignant neoplasm of unspecified lung; Z85.3 Personal history of malignant neoplasm of breast; C78.7 Secondary malignant neoplasm of liver and intrahepatic bile duct
CPT/HCPCS: 36415; 80053; 82378; 85025; 86300

== ENCOUNTER 2021-01-02 15:30 | Emergency (ER) | payer OTHER, SELFPAY ==
[2021-01-02 15:33] VITALS: BP 132/74; PULSE 112; RESP 24; TEMP 37.2; O2SAT 96
--- NOTE | 2021-01-02 15:58 | ED_ITS ---
HPI - General Adult General Chief complaint: Abdominal Pain Stated complaint: painful urination, hard time going #2 Time Seen by Provider: 01/02/21 15:37 Source: patient Mode of arrival: Ambulatory Limitations: no limitations History of Present Illness HPI narrative: Patient is a 75-year-old female with a known history of breast cancer that has metastasized to her liver. She is currently on oral chemotherapy. She was recently switched to a new chemotherapy regimen just over 1 week ago. For the past 3 days she has had dark foul-smelling urine and also burning when she urinates. She feels that she has a urinary tract infection. Has had nausea but this is not necessarily new for her. She does have nausea medicine at home which takes care of this symptom. She feels that this is related to her chemotherapy. She also has had problems with having a bowel movement. Last bowel movement was 3 days ago. No prior abdominal surgeries per afebrile. Has had history of constipation because the chemotherapy which she thinks this is worse. She is on MiraLax at home without much improvement. She does feel like her abdomen is distended. Afebrile. Related Data Home Medications Medication Instructions Recorded Confirmed [RX FOR BREAST CA] #0 10/25/12 08/21/19 [RX FOR GERD] #0 10/25/12 08/21/19 atenolol 25 mg PO QDAY #0 10/25/12 08/21/19 trazodone 50 mg PO QDAY #0 10/25/12 08/21/19 Previous Rx's Medication Instructions Recorded bisacodyl [Dulcolax (bisacodyl)] 5 mg PO BID PRN #20 tab 06/22/19 hydrocortisone 1 %-pramoxine 1 % 1 applictn [place] TID-QID PRN #10 gram 06/25/19 rectal foam rizatriptan 10 mg tablet 10 mg PO ONCE #5 tab 08/21/19 sulfamethoxazole-trimethoprim 1 tab PO BID 3 Days #6 tab 01/02/21 [Bactrim DS] Allergies Allergy/AdvReac Type Severity Reaction Status Date / Time No Known Drug Allergies Allergy Verified 01/02/21 16:11 Review of Systems Constitutional Constitutional: Denies headache(s) ENT Ears, Nose, Mouth, and Throat: Denies headache(s) Cardiovascular Cardiovascular: Reports system reviewed and no additional complaints, except as documented Respiratory Respiratory: Reports system reviewed and no additional complaints, except as documented Gastrointestinal Gastrointestinal: Reports bloating, Reports constipation, Reports nausea and Denies vomiting Genitourinary Genitourinary: Reports dysuria and Reports urinary urgency Genitourinary: Reports dysuria and Reports urinary urgency Musculoskeletal Musculoskeletal: Reports system reviewed and no additional complaints, except as documented Integumentary/Breasts Skin/Breast: Denies rash Neurologic Neurologic: Reports system reviewed and no additional complaints, except as documented and Denies headache(s) Hematologic/Lymphatic On Anticoagulants: No Allergic/Immunologic Allergic/Immunologic: Reports system reviewed and no additional complaints, except as documented Patient History Medical History (Updated 01/02/21 @ 18:39 by Gonzalo Newman DO) External hemorrhoids Metastatic breast cancer Migraine Social History Smoking Status: Never smoker Smoking Status: Never smoker Substance Use Type: does not use Exam Initial Vital Signs Initial Vital Signs: Vital Signs Temperature 98.9 F 01/02/21 15:33 Pulse Rate 112 H 01/02/21 15:33 Respiratory Rate 24 01/02/21 15:33 Blood Pressure 132/74 01/02/21 15:33 Pulse Oximetry 96 01/02/21 15:33 Const General: cooperative Limitations: mental status not altered [facility] Head: normal to inspection and normocephalic Resp Effort & Inspection: normal respiratory effort Auscultation: clear to auscultation bilaterally Cardio Rate: tachycardic Rhythm: regular rhythm GI Palpation: soft and tender (Over liver) Other: Hepatomegaly Skin Lesions: no lesions Rashes: no rashes Neuro General: patient alert, patient awake and patient oriented x3 Cognition: normal cognition Speech: speech normal Extrem General: normal to inspection and capillary refill normal Psych Appearance: grossly normal and well kempt Course Orders Ordered: ED Orders 01/02/21 15:59 CT abdomen pelvis w con Stat 01/02/21 16:14 XR chest 1V Stat 01/02/21 16:44 Basic Metabolic Panel Stat Complete Blood Count AUTO DIFF Stat 01/02/21 17:51 Urinalysis and Microscopic Stat Urine Culture Stat 01/02/21 18:19 Consult to [facility] - Moisture Tester Stat Sodium Chloride (Normal Saline 0.9%) 1,000 mls @ 150 mls/hr IV BOLUS ONE Stop: 01/02/21 23:27 Last Infusion: 01/02/21 18:20 Dose: 0 mls/hr Documented by: Admin: 01/02/21 17:02 Dose: 150 mls/hr Documented by: MARY Discontinued Medications Trimethoprim/Sulfamethoxazole (Trimeth/Sulfa 160/800 (Ds) Tablet) 1 tab PO NOW ONE Stop: 01/02/21 18:37 Last Admin: 01/02/21 18:42 Dose: 1 tab Documented by: MARY Vital Signs Vital signs: Vital Signs - 8 hr 01/02/21 15:33 01/02/21 18:30 Temperature 98.9 F Pulse Rate 112 H 78 Respiratory Rate 24 16 Blood Pressure 132/74 132/78 Pulse Oximetry 96 99 Medical Decision Making Medical Records Medical records reviewed: Yes I reviewed the patient's medical records. Lab Data Lab results reviewed: Yes I reviewed the patient's lab results. Result diagrams: 01/02/21 16:44 01/02/21 16:44 Labs: Lab Results 01/02/21 01/02/21 01/02/21 Range/Units 16:44 16:44 17:51 WBC 5.0 (4.5-11.0) X10^3/uL RBC 3.37 L (4.0-5.2) X10^6/uL Hgb 12.0 (12.0-16.0) g/dL Hct 36.0 (36-46) % MCV 107.0 H (80-100) fL MCH 35.5 H (26-34) PG MCHC 33.2 (30-36) % RDW 13.9 (11.6-14.8) % Plt Count 199 (150-400) X10^3/uL Neut % (Auto) 89.8 H (50-75) % Lymph % (Auto) 8.0 L (25-40) % [place] % (Auto) 1.2 L (3-14) % Eos % (Auto) 0.4 L (2-4) % Baso % (Auto) 0.6 (0-2) % Neut # (Auto) 4500 (3011-1281) /uL Lymph # (Auto) 400 L (2166-3851) /uL [place] # (Auto) 100 (0-900) /uL Eos # (Auto) 0 (0-450) /uL Baso # (Auto) 0 (0-100) /uL Sodium 128 L (137-145) mmol/L Potassium 4.5 (3.4-5.1) mmol/L Chloride 98 (98-107) mmol/L Carbon Dioxide 25 (22-32) mmol/L BUN 17 (7-17) mg/dL Creatinine 0.46 L (0.52-1.04) mg/dL Estimated GFR > 60.0 (>60) mL/min BUN/Creatinine Ratio 37.0 H (6-22) Glucose 223 H (80-110) mg/dL Calcium 8.6 (8.4-10.2) mg/dL Urine Color Yellow Urine Appearance Clear Urine pH 6.0 (4.5-8.0) Ur Specific [place] 1.025 (1.000-1.035) Urine Protein Negative (Negative) Urine Glucose (UA) 1+ H (Negative) g/dL Urine Ketones Negative (NEGATIVE) Urine Occult Blood Negative (Negative) Urine Nitrate Negative (Negative) Urine Bilirubin Negative (NEGATIVE) Urine Urobilinogen 1.0 (0.2) E.U./dL Ur Leukocyte Esterase Negative (NEGATIVE) Urine RBC 0-1/hpf (0-5/HPF) Urine WBC 0-1/hpf (0-5/HPF) Urine Bacteria Few (2-10) H (None) Ur Culture Indicated? Cult not indicated Imaging Data Chest x-ray: Radiologist's Impression: [address] [id number] ReportSigned Patient: Vani Mcdermott [facility]#: [id number]: 4Acct:[id number]/Sex: 75 / FDate of Service: 01/02/21Loc: EDAccession Number: [id number] Procedure: XR chest 1V Ordering Provider: Gonzalo Newman D.O. PROCEDURE: XR CHEST 1V INDICATIONS: Flu like symptoms TECHNIQUE: One view of the chest was acquired. COMPARISON: None. FINDINGS: Surgical changes and devices: Right-sided port with the catheter tip in the region of the middle 3rd of the SVC. Initials on port C. T. Lungs and pleura: Streaky opacity at the lung bases No pleural effusions or pneumothorax. Mediastinum: Mediastinal contours appear normal. Heart size is normal. Bones and chest wall: No suspicious bony lesions. Scoliosis. Small ossicles adjacent to the left clavicle. Overlying soft tissues appear unremarkable. IMPRESSION: Bibasilar streaky opacity. Favor atelectasis over pneumonia. Dictated by: Wero Troncoso M.D. on 01/02/2021 at 16:56 Approved by: Wero Troncoso M.D. on 01/02/2021 at 16:58 CT scan - abdomen/pelvis: Radiologist's Impression: [address] [id number] Scan ReportSigned Patient: Vani Mcdermott [facility]#: [id number]: 4Acct:[id number]/Sex: 75 / FDate of Service: 01/02/21Loc: EDAccession Number: [id number] Procedure: CT abdomen pelvis w con Ordering Provider: Gonzalo Newman D.O. PROCEDURE: CT ABDOMEN PELVIS W CON INDICATIONS: Known liver Mets from breast cancer now with poss obstructio TECHNIQUE: After the administration of intravenous contrast, 5 mm thick sections acquired from the diaphragm to the symphysis. 5 mm coronal and sagittal reformats were acquired. For radiation dose reduction, the following was used: automated exposure control, adjustment of mA and/or kV according to patient size. COMPARISON: None. FINDINGS: Image quality: Excellent. ABDOMEN: Lung bases: Mild bibasilar atelectasis.. Heart size is normal. Solid organs: Liver is enlarged. Multiple hypodense hepatic masses are present, indicating severe metastatic disease. Gallbladder is grossly unremarkable. Biliary system is non dilated. Pancreas enhances normally. Spleen is normal in size and enhancement. No adrenal nodules. Kidneys demonstrate normal size and enhancement, without hydronephrosis. Peritoneum and bowel: Moderate hiatal hernia. Thickening of the gastric antrum is present. Moderately thickened small bowel loops within the left hemiabdomen are present. Colon is nondistended. Bowel loops demonstrate otherwise normal wall thickness and caliber. No pneumoperitoneum. Small amount of free fluid within the pelvis. Nodes and vessels: No retroperitoneal or mesenteric adenopathy by size criteria. Aorta and inferior vena cava are normal in size. Miscellaneous: No ventral hernias. PELVIS: Genitourinary: Ferreira catheter is present. Urinary bladder is decompressed. Miscellaneous: No inguinal hernias or adenopathy. Bones: Severe leftward curvature of the lumbar spine. Right hip arthroplasty. Irregular lucency and sclerosis within the left charlotte sacrum. There is irregular lucency within the T12 vertebral body, suggestive of metastatic disease. No vertebral body compression fractures. IMPRESSION: 1. Severe hepatic metastatic disease. 2. Thickening of the gastric antrum and small bowel, suggestive of infection or inflammation. 3. Moderate hiatal hernia. 4. Small amount of ascites, consistent with peritoneal inflammation or infection. 5. Findings suggestive left charlotte sacral and T12 bony metastatic disease. This could be further assessed with nonemergent MRI with and without intravenous contrast, if clinically indicated. Dictated by: Pedro Roger M.D. on 01/02/2021 at 17:53 Approved by: Pedro Roger M.D. on 01/02/2021 at 17:57 MDM Narrative Medical decision making narrative: Patient's CT scan does not show any signs of obstruction. She knows about the metastasis noted in her liver and the spine. A postvoid residual shows approximately 400 cc of urine in the bladder. A Ferreira catheter was placed. She does have symptoms that are consistent with a urinary tract infection. She has been having frequency and burning and now urinary retention. She does have bacteria in her urine and a urine culture was pending at the time of discharge. Given her history we will place her on antibiotics she was given a 1st dose here in the ER prescription sent to the pharmacy of her choice. She is not septic. After having a discussion with the patient we will also leave the urinary catheter in place. She will contact her primary doctor and also her oncologist for follow-up. She expressed understanding and agreement. Discharge Plan Departure Patient Disposition: Home Clinical Impression: Acute UTI, Acute urinary retention Instructions: DI for Urinary Tract Infection (UTI), How to Care for Your Ferreira Catheter -- Female, DI for Urinary Retention in Women Activity Restrictions/Additional Instructions: Recommend that tomorrow you contact your primary provider and your oncologist for follow-up. Take the antibiotics as directed. Return to the emergency department for any new or worsening symptoms Prescriptions: New sulfamethoxazole-trimethoprim [Bactrim DS] 800-160 mg tablet 1 tab PO BID 3 Days Qty: 6 RF: 0 No Action Proctofoam HC 1-1 % foam 1 applictn [place] TID-QID PRN (Reason: hemorrhoids) Qty: 10 RF: 0 rizatriptan 10 mg tablet 10 mg PO ONCE Qty: 5 RF: 0 trazodone 50 MG tablet 50 mg PO QDAY Qty: 0 RF: 0 atenolol 25 MG tablet 25 mg PO QDAY Qty: 0 RF: 0 [RX FOR GERD] Qty: 0 RF: 0 [RX FOR BREAST CA] Qty: 0 RF: 0 bisacodyl [Dulcolax (bisacodyl)] 5 mg tablet,delayed release (DR/EC) 5 mg PO BID PRN (Reason: constipation) Qty: 20 RF: 0 Referrals: Luis Can MD [Primary Care Provider] -
--- NOTE | 2021-01-02 16:14 | DI.RAD.S_ITS ---
PROCEDURE: XR CHEST 1V INDICATIONS: Flu like symptoms TECHNIQUE: One view of the chest was acquired. COMPARISON: None. FINDINGS: Surgical changes and devices: Right-sided port with the catheter tip in the region of the middle 3rd of the SVC. Initials on port C. T. Lungs and pleura: Streaky opacity at the lung bases No pleural effusions or pneumothorax. Mediastinum: Mediastinal contours appear normal. Heart size is normal. Bones and chest wall: No suspicious bony lesions. Scoliosis. Small ossicles adjacent to the left clavicle. Overlying soft tissues appear unremarkable. IMPRESSION: Bibasilar streaky opacity. Favor atelectasis over pneumonia. Dictated by: Wero Troncoso M.D. on 01/02/2021 at 16:56 Approved by: Wero Troncoso M.D. on 01/02/2021 at 16:58
[2021-01-02 16:57] LABS: Add Manual Diff / Slide Review NO; Basophils Absolute Auto 0 /uL (0-100); Basophils Percent Auto 0.6 % (0-2); Eosinophils Absolute Auto 0 /uL (0-450); Eosinophils Percent Auto 0.4 % (2-4); Lymphocytes Absolute Auto 400 /uL (1100-4500); Mean Corpuscular HGB Conc 33.2 % (30-36); Mean Corpuscular Hemoglobin 35.5 PG (26-34); Monocytes Absolute Auto 100 /uL (0-900); Monocytes Percent Auto 1.2 % (3-14); Neutrophils Absolute Auto 4500 /uL (1500-7000); Neutrophils Percent Auto 89.8 % (50-75); Platelet Count 199 X10^3/uL (150-400); Red Blood Cell Count 3.37 X10^6/uL (4.0-5.2); Red Cell Distribution Width 13.9 % (11.6-14.8)
[2021-01-02] MEDS: SODIUM CHLORIDE 0.9% 1,000 ML 150 ML IV (17:02)
--- NOTE | 2021-01-02 17:02 | PC.NURSE ---
plan to wait 30 min to see if pt can void, if not will pursue catheter. pt/dtr agree w/ plan of care.
[2021-01-02 17:08] LABS: Blood Urea Nitrogen 17 mg/dL (7-17); Calcium 8.6 mg/dL (8.4-10.2); Carbon Dioxide 25 mmol/L (22-32); Chloride 98 mmol/L (98-107); Estimated Glomerular Filt Rate > 60.0 mL/min (>60); Glucose 223 mg/dL (80-110); HEMOLYSIS < 15 (0-50); Potassium 4.5 mmol/L (3.4-5.1); Sodium 128 mmol/L (137-145)
--- NOTE | 2021-01-02 17:41 | PC.NURSE ---
catheter placed for urinary retention. Pt tolerated well.
[2021-01-02 18:02] LABS: Appearance Urine UA CLEAR; Bilirubin Urine UA NEGATIVE (NEGATIVE); Color Urine UA YELLOW; Glucose Urine UA 1+ g/dL (Negative); Ketones Urine UA NEGATIVE (NEGATIVE); Leukocyte Esterase Urine UA NEGATIVE (NEGATIVE); Nitrite Urine UA NEGATIVE (Negative); Occult Blood Urine UA NEGATIVE (Negative); Protein Urine UA NEGATIVE (Negative); Specific Gravity Urine UA 1.025 (1.000-1.035)
[2021-01-02 18:18] LABS: RBC Urine 0-1/HPF (0-5/HPF); WBC Urine 0-1/HPF (0-5/HPF)
[2021-01-02 18:19] LABS: Bacteria Urine Few (2-10); Culture Indicated Urine Cult Not Indicated
[2021-01-02 18:30] VITALS: BP 132/78; PULSE 78; RESP 16; O2SAT 99
--- NOTE | 2021-01-02 18:36 | CM.SWNOTE ---
[employer]AIL [employer]ER AND [employer]TER note DETAIL MAKER AND [employer]TER receives consult and meets with patient and patient's Shante. Patient is 75 y/o female who presents to this ED with concern of dark foul smelling urine. patient has hx and dx of breast cancer that has metastasized to her liver, patient is on oral chemo therapy. Patient and request information regarding hospice. It is reported that patient's Oncologist in [place] Dr. Luis Can with [facility] (Ph. # ) discussed Hospice with patient and . It is reported that patient is ready for palliative care and currently on chemotherapy. Patient and state that they live at home in [place] with family and friends somewhat close by. [employer]AIL [employer] provides patient and with [facility] [place] pamphlet and senior resource guide. DETAIL MAKER AND [employer]TER states that [employer]AIL [employer]ER [employer]TER will submit referral and contact Hospice and encouraged patient and to contact Hospice this week as well. Plan: patient to d/c home when medically clear with , [employer]AIL [employer]ER [employer]TER to submit hospice referral. DETAIL [employer]ER AND [employer]TER reviews the above with BROOK[place]N Sood and ED Provider Dr. Newman, order for consult for hospice referral is submitted. JUAN Patel
[2021-01-02] MEDS: TRIMETH/SULFA 160/800 (DS) TABLET 1 TAB PO (18:42)
== END 2021-01-02 18:48 | disposition home or self-care (01) ==
PROVIDERS: Emergency Provider Emergency Medicine; PCP Internal Medicine Hematology & Oncology
DX: N39.0 Urinary tract infection, site not specified (principal); R33.8 Other retention of urine; K59.00 Constipation, unspecified; C78.7 Secondary malignant neoplasm of liver and intrahepatic bile duct
CPT/HCPCS: 36415; 51702; 51798; 71045; 74177; 80048; 81001; 85025; 87086; 96360; 99284; J1642; Q9967

== ENCOUNTER 2021-01-10 08:38 | Emergency (ER) | payer OTHER, SELFPAY ==
[2021-01-10] VITALS (13 sets, daily range): BP systolic 128–148; BP diastolic 76–103; PULSE 74–79; RESP 14–34; TEMP 36.6–37.4; O2SAT 92–99; BMI 24.9
--- NOTE | 2021-01-10 08:51 | ED.GENADULT ---
HPI - General Adult General Chief complaint: Shortness of Breath/Dyspnea Stated complaint: can't breathe Time Seen by Provider: 01/10/21 08:47 Source: patient Mode of arrival: Ambulatory Limitations: no limitations History of Present Illness HPI narrative: Patient is a 75-year-old female who is here for evaluation of shortness of breath. She reports that her shortness of breath started sometime last evening but worsened this morning. She also feels a heaviness on her chest. Yesterday and last evening she was at her normal state health. She does have a history of breast cancer. Is currently undergoing treatment. Her next round of treatment is coming up in a few weeks however there is discussion between her and her about whether not they are going to continue. 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 She does have ascites however she thinks that her abdomen is not any more distended than what it normally is over the past several days/weeks. She has never needed a paracentesis. She is afebrile. Has been coughing that this is not necessarily new for her. No prior diagnosis of lung issues to include COPD nor emphysema. No prior cardiac issues as well. Related Data Home Medications Medication Instructions Recorded Confirmed [RX FOR BREAST CA] #0 10/25/12 08/21/19 [RX FOR GERD] #0 10/25/12 08/21/19 atenolol 25 mg PO QDAY #0 10/25/12 08/21/19 trazodone 50 mg PO QDAY #0 10/25/12 08/21/19 Previous Rx's Medication Instructions Recorded bisacodyl [Dulcolax (bisacodyl)] 5 mg PO BID PRN #20 tab 06/22/19 hydrocortisone 1 %-pramoxine 1 % 1 applictn CO TID-QID PRN #10 gram 06/25/19 rectal foam rizatriptan 10 mg tablet 10 mg PO ONCE #5 tab 08/21/19 nystatin 400,000 unit PO QID #480 ml 01/10/21 Allergies Allergy/AdvReac Type Severity Reaction Status Date / Time No Known Drug Allergies Allergy Verified 01/10/21 08:50 Review of Systems Constitutional Constitutional: Denies fever(s) and Denies headache(s) ENT Ears, Nose, Mouth, and Throat: Denies headache(s) Cardiovascular Cardiovascular: Reports dyspnea Comments: Chest heaviness Respiratory Respiratory: Reports cough and Reports dyspnea Gastrointestinal Gastrointestinal: Denies abdominal pain, Reports bloating (Unchanged) and Denies vomiting Musculoskeletal Musculoskeletal: Denies back pain Integumentary/Breasts Skin/Breast: Denies rash Neurologic Neurologic: Denies headache(s) Hematologic/Lymphatic On Anticoagulants: No Allergic/Immunologic Allergic/Immunologic: Reports system reviewed and no additional complaints, except as documented Patient History Medical History External hemorrhoids Metastatic breast cancer Migraine Social History Smoking Status: Never smoker Smoking Status: Never smoker Substance Use Type: does not use Exam Initial Vital Signs Initial Vital Signs: Vital Signs Blood Pressure 134/86 01/10/21 08:44 Const General: cooperative and comfortable Limitations: mental status not altered HENMT Head: normal to inspection and normocephalic Resp Effort & Inspection: labored and tachypneic Auscultation: clear to auscultation bilaterally Cardio Rate: regular rate Rhythm: regular rhythm GI Inspection: distended Palpation: soft, No mass and No tender Skin Lesions: no lesions Rashes: no rashes Neuro General: patient alert, patient awake and patient oriented x3 Cognition: normal cognition Speech: speech normal Extrem General: normal to inspection and capillary refill normal Psych Appearance: grossly normal and well kempt Course Orders Ordered: ED Orders 01/10/21 08:52 XR chest 1V Stat EKG-12 Lead Stat 01/10/21 09:22 CT angio chest PE protocol Stat 01/10/21 09:45 Basic Metabolic Panel Stat Complete Blood Count AUTO DIFF Stat Hepatic (Liver) Panel Stat Lipase Stat Troponin & CK Cardiac Panel Stat 01/10/21 09:50 COVID19 -Nasal swab/Pre-Proc Stat Discontinued Medications Sodium Chloride (Normal Saline 0.9%) 1,000 mls @ 500 mls/hr IV BOLUS ONE Stop: 01/10/21 11:20 Last Admin: 01/10/21 09:50 Dose: 500 mls/hr Documented by: ADRIANA Vital Signs Vital signs: Vital Signs - 8 hr 01/10/21 08:44 01/10/21 08:45 01/10/21 08:50 Temperature 99.3 F Pulse Rate 78 76 Respiratory Rate 32 H 20 Blood Pressure 134/86 134/85 Pulse Oximetry 98 97 01/10/21 09:00 01/10/21 09:01 01/10/21 09:30 Temperature Pulse Rate 75 75 74 Respiratory Rate 34 H 34 H 25 H Blood Pressure 134/103 H 130/82 Pulse Oximetry 98 99 96 01/10/21 10:00 01/10/21 10:19 01/10/21 10:30 Temperature Pulse Rate 76 75 75 Respiratory Rate 30 H 20 14 Blood Pressure 145/80 H 128/76 Pulse Oximetry 93 97 92 01/10/21 11:00 01/10/21 11:01 01/10/21 12:27 Temperature Pulse Rate 77 77 79 Respiratory Rate 24 27 H 16 Blood Pressure 148/88 H 142/83 H Pulse Oximetry 98 Medical Decision Making Lab Data Lab results reviewed: Yes I reviewed the patient's lab results. Result diagrams: 01/10/21 09:45 01/10/21 09:45 Labs: Lab Results 01/10/21 01/10/21 01/10/21 Range/Units 09:45 09:45 09:45 WBC 1.9 L* (4.5-11.0) X10^3/uL RBC 3.46 L (4.0-5.2) X10^6/uL Hgb 12.0 (12.0-16.0) g/dL Hct 36.2 (36-46) % MCV 104.6 H (80-100) fL MCH 34.7 H (26-34) PG MCHC 33.2 (30-36) % RDW 13.8 (11.6-14.8) % Plt Count 226 (150-400) X10^3/uL Neut % (Auto) Not Reportable Lymph % (Auto) Not Reportable Archer % (Auto) Not Reportable Eos % (Auto) Not Reportable Baso % (Auto) Not Reportable Lymph # (Auto) Not Reportable Archer # (Auto) Not Reportable Baso # (Auto) Not Reportable Total Counted 100 Seg Neutrophils % 48.0 (38-70) % Lymphocytes % (Manual) 51.0 H (25-45) % Monocytes % (Manual) 1.0 L (2-11) % Neutrophils # (Manual) 912 L (9784-6855) /uL RBC Morphology Not Reportable Rouleaux 1+ H Sodium 130 L (137-145) mmol/L Potassium 4.1 (3.4-5.1) mmol/L Chloride 98 (98-107) mmol/L Carbon Dioxide 24 (22-32) mmol/L BUN 10 (7-17) mg/dL Creatinine 0.48 L (0.52-1.04) mg/dL Estimated GFR > 60.0 (>60) mL/min BUN/Creatinine Ratio 20.8 (6-22) Glucose 95 D (80-110) mg/dL Calcium 9.2 (8.4-10.2) mg/dL Total Bilirubin 1.1 (0.2-1.3) mg/dL Conjugated Bilirubin 0.0 (0.0-0.3) md/dL Unconjugated Bilirubin 0.4 (0.0-1.1) mg/dL AST 94 H (14-36) IU/L ALT 36 H (<35) IU/L Alkaline Phosphatase 729 H (38-126) U/L Total Creatine Kinase 106 (30-135) U/L CK-MB (CK-2) 0.64 (<2.37) ng/mL CK-MB (CK-2) Rel Index 0.6 L (1.5-5.0) % Troponin I < 0.012 (0.01-0.034) ng/mL Total Protein 6.4 (6.3-8.2) g/dL Albumin 3.1 L (3.5-5.0) g/dL Globulin 3.3 (1.7-4.1) g/dL Albumin/Globulin Ratio 0.9 L (1.0-2.8) Lipase 44 (23-300) U/L SARS-CoV-2 (PCR) (Negative) 01/10/21 Range/Units 09:50 WBC (4.5-11.0) X10^3/uL RBC (4.0-5.2) X10^6/uL Hgb (12.0-16.0) g/dL Hct (36-46) % MCV (80-100) fL MCH (26-34) PG MCHC (30-36) % RDW (11.6-14.8) % Plt Count (150-400) X10^3/uL Neut % (Auto) Lymph % (Auto) Archer % (Auto) Eos % (Auto) Baso % (Auto) Lymph # (Auto) Archer # (Auto) Baso # (Auto) Total Counted Seg Neutrophils % (38-70) % Lymphocytes % (Manual) (25-45) % Monocytes % (Manual) (2-11) % Neutrophils # (Manual) (8235-0094) /uL RBC Morphology Rouleaux Sodium (137-145) mmol/L Potassium (3.4-5.1) mmol/L Chloride (98-107) mmol/L Carbon Dioxide (22-32) mmol/L BUN (7-17) mg/dL Creatinine (0.52-1.04) mg/dL Estimated GFR (>60) mL/min BUN/Creatinine Ratio (6-22) Glucose (80-110) mg/dL Calcium (8.4-10.2) mg/dL Total Bilirubin (0.2-1.3) mg/dL Conjugated Bilirubin (0.0-0.3) md/dL Unconjugated Bilirubin (0.0-1.1) mg/dL AST (14-36) IU/L ALT (<35) IU/L Alkaline Phosphatase (38-126) U/L Total Creatine Kinase (30-135) U/L CK-MB (CK-2) (<2.37) ng/mL CK-MB (CK-2) Rel Index (1.5-5.0) % Troponin I (0.01-0.034) ng/mL Total Protein (6.3-8.2) g/dL Albumin (3.5-5.0) g/dL Globulin (1.7-4.1) g/dL Albumin/Globulin Ratio (1.0-2.8) Lipase (23-300) U/L SARS-CoV-2 (PCR) Negative (Negative) Urine Dip Bedside Urine Glucose Negative Bedside Urine Bilirubin - Negative Bedside Urine Ketone + 15 Urine Specific [place] 1.015 Bedside Urine Occult Blood - Negative Bedside Urine pH 6.0 Bedside Urine Protein - Negative Bedside Urine Urobilinogen - Negative Bedside Urine Nitrite - Negative Bedside Urine Leukocytes - Negative Esterase Point of care testing: Urine Dip Bedside Urine Glucose Negative Bedside Urine Bilirubin - Negative Bedside Urine Ketone + 15 Urine Specific [place] 1.015 Bedside Urine Occult Blood - Negative Bedside Urine pH 6.0 Bedside Urine Protein - Negative Bedside Urine Urobilinogen - Negative Bedside Urine Nitrite - Negative Bedside Urine Leukocytes - Negative Esterase Imaging Data Chest x-ray: Radiologist's Impression: [address] [id number] ReportSigned Patient: Vani Mcdermott [facility]#: [id number]: [id number]:[id number]/Sex: 75 / FDate of Service: 01/10/21Loc: EDAccession Number: [id number] Procedure: XR chest 1V Ordering Provider: Gonzalo Newman D.O. PROCEDURE: XR CHEST 1V INDICATIONS: Shortness of breath TECHNIQUE: One view of the chest was acquired. COMPARISON: [facility], CT, CT ABDOMEN PELVIS W CON, 01/02/2021, 17:40. [facility], CR, XR CHEST 1V, 01/02/2021, 16:26. FINDINGS: Surgical changes and devices: Right-sided port with the catheter tip at the cavoatrial junction. Lungs and pleura: Minimal curvilinear opacity at the lung bases similar to the prior exam. No consolidation. No pleural effusions or pneumothorax. Mediastinum: Mediastinal contours appear unchanged. Hiatal hernia seen on prior CT not well appreciated. Heart size is normal. Bones and chest wall: No suspicious bony lesions. Scoliosis. Overlying soft tissues appear unremarkable. IMPRESSION: Minimal bibasilar atelectasis suspected. Dictated by: Wero Troncoso M.D. on 01/10/2021 at 9:29 Approved by: Wero Troncoso M.D. on 01/10/2021 at 9:30 CT scan - chest: Radiologist's Impression: [address] [id number] Scan ReportSigned Patient: Vani Mcdermott [facility]#: [id number]: [id number]:[id number]/Sex: 75 / FDate of Service: 01/10/21Loc: EDAccession Number: [id number] Procedure: CT angio chest PE protocol Ordering Provider: Gonzalo Newman D.O. PROCEDURE: CT ANGIO CHEST PE PROTOCOL INDICATIONS: Chest pain, shortness of breath, tachycardia TECHNIQUE: After the administration of intravenous contrast, 2 mm thick sections acquired from the pulmonary apices to the posterior costophrenic angles. 3-dimensional maximum intensity projection (MIP) coronal and sagittal reformats were then acquired through the thorax. For radiation dose reduction, the following was used: automated exposure control, adjustment of mA and/or kV according to patient size. COMPARISON: [facility], CT, CT ABDOMEN PELVIS W CON, 01/02/2021, 17:40. FINDINGS: Image quality: Excellent. Pulmonary arteries: Pulmonary arteries are normal in size, and demonstrate no intraluminal filling defects to suggest pulmonary embolism. No acute aortic syndrome. No aortic dissection. Lungs and pleura: A few pulmonary nodules. For example: -Right upper lobe 0.4 cm, (4/58). -Right lower lobe 0.3 cm, (4/127). -Left upper lobe 0.4 cm, (4/142). -Left lower lobe 0.4 cm, (4/125). Mild bilateral dependent airspace opacity. No pleural effusions or pneumothorax. Central and peripheral airways are patent. Mediastinum: Right-sided port with the catheter tip at the lower 3rd of the SVC. Heart size is normal, without pericardial effusion. No mediastinal or hilar adenopathy. A somewhat shotty appearing mediastinal lymph nodes. Thoracic aorta is normal in caliber and enhancement. Esophagus is normal in caliber, moderate-sized hiatal hernia. Bones and chest wall: No suspicious bony lesions. Suspect prior left-sided rib fractures. Bilateral thyroid nodules. Largest on the right measuring approximately 2.6 cm and on the left measuring 1.1 cm. No axillary or supraclavicular adenopathy. Abdomen: Liver has a heterogeneous appearance. Trace ascites. Please see recently dictated CT abdomen and pelvis. IMPRESSION: 1. No pulmonary embolism. 2. Mild dependent airspace opacity. Favor atelectasis over pneumonia. 3. A few small pulmonary nodules which are indeterminate for metastatic disease. 4. Heterogeneous appearance of the liver. Trace ascites. Dictated by: Wero Troncoso M.D. on 01/10/2021 at 10:25 Approved by: Wero Troncoso M.D. on 01/10/2021 at 10:37 ECG Data Attestation: I personally reviewed and interpreted this ECG as follows: Prior ECG tracings: not available for review Interpretation: Sinus rhythm Ventricular rate is 76 Normal axis Normal QRS Normal QTC No ST T wave changes MDM Narrative Medical decision making narrative: Chest x-ray was unremarkable. CTA of the chest showed no signs of pulmonary embolism. Patient was complaining of some abdominal discomfort so I did a bedside ultrasound to evaluate for ascites as potentially the cause of her discomfort however there was no ascites noted. It did show that she had a relatively distended bladder. She tried to urinate was unable to. We did a bladder scan which showed approximately 600 cc of urine. Ferreira catheter was placed and she reported resolution of her shortness of breath and also her abdominal discomfort. The plan will be is to leave the Ferreira catheter in place. The urinalysis does not show any signs of infection. She does have sores in her mouth and nursing staff stated that she had quite a bit of irritation in her perineal area so we will provide a nystatin swish and swallow solution. She was instructed to contact her primary doctor and also her oncologist. She was given return precautions. She expressed understanding and agreement. Discharge Plan Departure Patient Disposition: Home Clinical Impression: Acute urinary retention Instructions: How to Care for Your Ferreira Catheter -- Female Activity Restrictions/Additional Instructions: I do recommend that you keep all of your scheduled medical appointments and I recommend that you contact your oncologist for follow-up as well. Return to the emergency department for any new or worsening symptoms Prescriptions: New nystatin 100,000 unit/mL suspension 400,000 unit PO QID Qty: 480 RF: 0 No Action Proctofoam HC 1-1 % foam 1 applictn CO TID-QID PRN (Reason: hemorrhoids) Qty: 10 RF: 0 rizatriptan 10 mg tablet 10 mg PO ONCE Qty: 5 RF: 0 trazodone 50 MG tablet 50 mg PO QDAY Qty: 0 RF: 0 atenolol 25 MG tablet 25 mg PO QDAY Qty: 0 RF: 0 [RX FOR GERD] Qty: 0 RF: 0 [RX FOR BREAST CA] Qty: 0 RF: 0 bisacodyl [Dulcolax (bisacodyl)] 5 mg tablet,delayed release (DR/EC) 5 mg PO BID PRN (Reason: constipation) Qty: 20 RF: 0 Referrals: Luis Can MD [Primary Care Provider] -
--- NOTE | 2021-01-10 09:22 | DI.CT.S_ITS ---
PROCEDURE: CT ANGIO CHEST PE PROTOCOL INDICATIONS: Chest pain, shortness of breath, tachycardia TECHNIQUE: After the administration of intravenous contrast, 2 mm thick sections acquired from the pulmonary apices to the posterior costophrenic angles. 3-dimensional maximum intensity projection (MIP) coronal and sagittal reformats were then acquired through the thorax. For radiation dose reduction, the following was used: automated exposure control, adjustment of mA and/or kV according to patient size. COMPARISON: [facility], CT, CT ABDOMEN PELVIS W CON, 01/02/2021, 17:40. FINDINGS: Image quality: Excellent. Pulmonary arteries: Pulmonary arteries are normal in size, and demonstrate no intraluminal filling defects to suggest pulmonary embolism. No acute aortic syndrome. No aortic dissection. Lungs and pleura: A few pulmonary nodules. For example: -Right upper lobe 0.4 cm, (4/58). -Right lower lobe 0.3 cm, (4/127). -Left upper lobe 0.4 cm, (4/142). -Left lower lobe 0.4 cm, (4/125). Mild bilateral dependent airspace opacity. No pleural effusions or pneumothorax. Central and peripheral airways are patent. Mediastinum: Right-sided port with the catheter tip at the lower 3rd of the SVC. Heart size is normal, without pericardial effusion. No mediastinal or hilar adenopathy. A somewhat shotty appearing mediastinal lymph nodes. Thoracic aorta is normal in caliber and enhancement. Esophagus is normal in caliber, moderate-sized hiatal hernia. Bones and chest wall: No suspicious bony lesions. Suspect prior left-sided rib fractures. Bilateral thyroid nodules. Largest on the right measuring approximately 2.6 cm and on the left measuring 1.1 cm. No axillary or supraclavicular adenopathy. Abdomen: Liver has a heterogeneous appearance. Trace ascites. Please see recently dictated CT abdomen and pelvis. IMPRESSION: 1. No pulmonary embolism. 2. Mild dependent airspace opacity. Favor atelectasis over pneumonia. 3. A few small pulmonary nodules which are indeterminate for metastatic disease. 4. Heterogeneous appearance of the liver. Trace ascites. Dictated by: Wero Troncoso M.D. on 01/10/2021 at 10:25 Approved by: Wero Troncoso M.D. on 01/10/2021 at 10:37
[2021-01-10 09:50] LABS: Hematocrit 36.2 % (36-46); Mean Corpuscular HGB Conc 33.2 % (30-36); Mean Corpuscular Hemoglobin 34.7 PG (26-34); Mean Corpuscular Volume 104.6 fL (80-100); Platelet Count 226 X10^3/uL (150-400); Red Blood Cell Count 3.46 X10^6/uL (4.0-5.2); Red Cell Distribution Width 13.8 % (11.6-14.8)
[2021-01-10] MEDS: SODIUM CHLORIDE 0.9% 1,000 ML 500 ML IV (09:50)
[2021-01-10 09:54] LABS: Add Manual Diff / Slide Review YES; White Blood Cell Count 1.9 X10^3/uL (4.5-11.0)
[2021-01-10 10:03] LABS: BUN Creatinine Ratio 20.8 (6-22); Blood Urea Nitrogen 10 mg/dL (7-17); Calcium 9.2 mg/dL (8.4-10.2); Carbon Dioxide 24 mmol/L (22-32); Chloride 98 mmol/L (98-107); Estimated Glomerular Filt Rate > 60.0 mL/min (>60); Glucose 95 mg/dL (80-110); HEMOLYSIS < 15 (0-50); Lipase 44 U/L (23-300); Potassium 4.1 mmol/L (3.4-5.1); Sodium 130 mmol/L (137-145)
[2021-01-10 10:08] LABS: Alanine Aminotransferase 36 IU/L (<35); Albumin 3.1 g/dL (3.5-5.0); Albumin Globulin Ratio 0.9 (1.0-2.8); Alkaline Phosphatase 729 U/L (38-126); Aspartate Aminotransferase 94 IU/L (14-36); Bilirubin Total 1.1 mg/dL (0.2-1.3); Bilirubin Unconjugated 0.4 mg/dL (0.0-1.1); Creatine Kinase 106 U/L (30-135); Globulin 3.3 g/dL (1.7-4.1); HEMOLYSIS < 15 (0-50); Total Protein 6.4 g/dL (6.3-8.2)
[2021-01-10 10:11] LABS: Neutrophils Absolute Manual 912 /uL (3000-5900); Rouleaux 1+; Total Cells Counted 100
[2021-01-10 10:20] LABS: Troponin I < 0.012 ng/mL (0.01-0.034)
[2021-01-10 10:21] LABS: COVID19 -Nasal RAPID Negative (Negative)
[2021-01-10 10:23] LABS: CKMB % Relative Index 0.6 % (1.5-5.0); Creatine Kinase MB 0.64 ng/mL (<2.37)
--- NOTE | 2021-01-10 11:54 | PC.NURSE ---
Ferreira catheter placed and pt tolerated well, some solange in vaginal canal caused some discomfort with iodine. Fabiola care performed after insertion and washed with soapy water and dried. Catheter draining yellow urine without difficulty. Pt reports feeling better and dyspnea has improved.
== END 2021-01-10 12:44 | disposition home or self-care (01) ==
PROVIDERS: Emergency Provider Emergency Medicine; PCP Internal Medicine Hematology & Oncology
DX: R33.8 Other retention of urine (principal); R07.9 Chest pain, unspecified; R06.82 Tachypnea, not elsewhere classified; Z20.822 Contact with and (suspected) exposure to COVID-19
CPT/HCPCS: 36415; 51702; 51798; 71045; 71275; 80048; 80076; 81003; 82550; 82553; 83690; 84484; 85007; 85025; 87635; 93005; 96360; 96361; 99284; 99285; C9803; J1642